=== PATIENT | female | born 1990 | race Two or more races ===

== ENCOUNTER 2024-01-15 22:18 | Emergency (ER) | payer OTHER ==
[~2024-01-15] VITALS: Ht 157.5 cm; Wt 90.9 kg
[2024-01-15 22:22] VITALS: TEMP 98.9
[2024-01-16 00:30] VITALS: BP 125/81; PULSE 74; RESP 18; O2SAT 98
== END 2024-01-16 00:33 | disposition home or self-care (01) ==
LOC: EMS 22:18
DX: S60.455A Superficial foreign body of left ring finger, initial encounter (principal); K76.0 Fatty (change of) liver, not elsewhere classified; Z90.49 Acquired absence of other specified parts of digestive tract; Z98.890 Other specified postprocedural states; W49.04XA Ring or other jewelry causing external constriction, initial encounter; Y93.89 Activity, other specified; Y92.89 Other specified places as the place of occurrence of the external cause; Y99.8 Other external cause status
CPT/HCPCS: 99284; Z7502